=== PATIENT | female | born 1980 | race Hispanic/Latino ===

== ENCOUNTER 2016-10-21 13:08 | Day surgery (SDC) | payer BC ==
[2016-10-21] MEDS ORDERED: REGLAN IV ONE (13:25)
[2016-10-21 14:10] VITALS: BP 127/68
[2016-10-21] MEDS ORDERED: DepaCON 500 MG in NACL 0.9% 100 ML IV ONE (14:26)
== END 2016-10-21 13:09 | disposition home or self-care (01) ==
LOC: OPU 13:08
PROVIDERS: ATTEND Specialist
DX: G43.909 Migraine, unspecified, not intractable, without status migrainosus (principal)
CPT/HCPCS: 96365; 96375; J2765; 96374

== ENCOUNTER 2016-10-26 21:09 | Emergency (ER) | payer BC ==
[2016-10-26] MEDS ORDERED: MORPHINE IV ONE (22:35)
[2016-10-26] MEDS ORDERED: ZOFRAN IV ONE (22:35)
[2016-10-26] MEDS ORDERED: NACL 0.9% 1000 ML 1,000 ML IV ONE (22:35)
--- NOTE | 2016-10-26 22:41 | Emergency Department Report ---
HPI - General Chief Complaint: Headache Time Seen by Provider: 10/26/16 22:17 - HPI HPI: This is a 36-year-old female who presents to the emergency department from home with complaint of a three-week migraine headache that is affecting her on the top right portion of her head. She doesn't history of migraines but says usually does not last this long. It has not been continuous, necessarily, but has been there more than it has not. Patient used to be on Topamax but was switched to Depakote, Toradol and Fioricet. She has been taking his medications without much relief. She was here Thursday, 5 days ago, in the outpatient procedure area and had a Depakote drip which helped for about [address] Palmer for neurology. She does not have a primary care doctor. She has this past medical history of migraine as well as a generalized anxiety disorder. The headache is associated with some photophobia and occasional nausea but she denies any vomiting, slurred speech or any neurological deficits. ED Past Medical Hx - Past Medical History Hx Arthritis: Yes - Surgical History Past Surgical History?: Yes Additional Surgical History: tubal ligation. - Social History Smoking Status: Current Every Day Smoker Substance Use Type: None - Medications Home Medications: Home Medications Medication Instructions Recorded Confirmed Last Taken Type ALPRAZolam [Alprazolam] 0.5 mg PO BID PRN 10/21/16 10/27/16 10/26/16 History Butalb/Acetaminophen/Caffeine 1 tab PO DAILY 10/21/16 10/27/16 10/26/16 History [Hqcpiw-Csrganyp-Nqvp 50-325-40] Duloxetine HCl [DULoxetine] 60 mg PO DAILY 10/21/16 10/27/16 10/26/16 History Ketorolac [Toradol] 10 mg PO DAILY PRN 10/21/16 10/27/16 10/26/[address] [DepaKOTE DR] 500 mg PO DAILY 10/27/16 10/27/16 10/26/16 History ED Review of Systems ROS: Stated complaint: MIGRAINE X 24 DAYS Other details as noted in HPI Comment: All other systems reviewed and negative Constitutional: denies: chills, fever Eyes: denies: eye pain, eye discharge, vision change ENT: denies: ear pain, throat pain Respiratory: denies: cough, shortness of breath, wheezing Cardiovascular: denies: chest pain, palpitations Gastrointestinal: nausea. denies: abdominal pain, vomiting Genitourinary: denies: urgency, dysuria, discharge Musculoskeletal: denies: back pain, joint swelling, arthralgia Skin: denies: rash, lesions Neurological: headache. denies: weakness, numbness Physical Exam - Physical Exam Vital Signs: Vital Signs 10/26/16 21:22 Temperature 98.7 F Pulse Rate 104 H Blood Pressure 148/91 O2 Sat by Pulse 98 Oximetry ED Course Vital Signs 10/26/16 21:22 Temperature 98.7 F Pulse Rate 104 H Blood Pressure 148/91 O2 Sat by Pulse 98 Oximetry - Consultations Consultation #1: I spoke with the patient's neurologist, Dr. Palmer, who recommended giving the patient 10 mg of Reglan and 500 mg of Depacon. He says that he is fine with her following up with him in the next 1-2 days and that he might have to increase her doses of Depakote. He does not recommend any further imaging and does not recommend any lumbar puncture and says he is very common and that this is a migraine headache for this patient. 10/27/16 01:21 ED Medical Decision Making - Lab Data Result diagrams: 10/26/16 22:42 10/26/16 22:42 - Medical Decision Making 36-year-old female with a history of migraines presents with right-sided migraine for the past 3 weeks. Her labs have been unremarkable. I spoke with her neurologist who recommended Reglan and Depacon. She received these medications and upon reevaluation she is still having discomfort but she is improved down to about a 4 out of 10. She says that it is a good an improvement where she feels she can go home and get some sleep and will follow- up with Dr. Palmer later today. She will return to the ER with any worsening of her symptoms or any acute distress. - Differential Diagnosis migraine, tension headache, cluster headache Critical Care Time: No Critical care attestation.: If time is entered above; I have spent that time in minutes in the direct care of this critically ill patient, excluding procedure time. ED Disposition Clinical Impression: Migraine headache Qualifiers: Migraine type: unspecified Status migrainosus presence: without status migrainosus Disposition: DISCHARGED TO HOME OR SELFCARE Is pt being admited?: No Condition: Stable Instructions: Migraine Headache (ED) Additional Instructions: Please follow-up with Dr. Ashley later today if possible or as soon as possible. Return to the emergency department with any worsening of your symptoms or any acute distress. Referrals: CAIT PALMER MD [Staff Physician] - [facility] Time of Disposition: 01:24
[2016-10-26 23:03] LABS: Basophils % (Auto) 0.9 % (0.0-1.8); Eosinophils % (Auto) 1.2 % (0.0-4.3); Hematocrit 44.8 % (30.3-42.9); Hemoglobin 15.3 gm/dl (10.1-14.3); Mean Corpuscular HGB Conc 34 % (30-34); Mean Corpuscular Hemoglobin 30 pg (28-32); Mean Corpuscular Volume 88 fl (79-97); Platelet Count 247 K/mm3 (140-440); Red Blood Count 5.09 M/mm3 (3.65-5.03); Red Cell Distribution Width 13.9 % (13.2-15.2); White Blood Count 8.7 K/mm3 (4.5-11.0)
[2016-10-26] MEDS ORDERED: REGLAN IV ONE (23:12)
[2016-10-26 23:21] LABS: Albumin 3.9 g/dL (3.9-5); Albumin/Globulin Ratio 1.6 %; Alkaline Phosphatase 103 units/L (35-129); Anion Gap 15 mmol/L; BUN/Creatinine Ratio 13.33; Blood Urea Nitrogen 8 mg/dL (7-17); Calcium 8.9 mg/dL (8.4-10.2); Carbon Dioxide 27 mmol/L (22-30); Chloride 99.3 mmol/L (98-107); Glucose 94 mg/dL (65-100); Potassium 4.2 mmol/L (3.6-5.0); Sodium 137 mmol/L (137-145); Total Protein 6.3 g/dL (6.3-8.2)
[2016-10-26 23:22] LABS: Alanine Aminotransferase < 5 units/L (7-56)
[2016-10-26] MEDS ORDERED: DepaCON 500 MG in NACL 0.9% 100 ML IV ONE (23:30)
[2016-10-27 02:06] VITALS: BP 106/70
== END 2016-10-27 02:07 | disposition home or self-care (01) ==
LOC: ED 21:09
DX: G43.909 Migraine, unspecified, not intractable, without status migrainosus (principal); M19.90 Unspecified osteoarthritis, unspecified site; F17.200 Nicotine dependence, unspecified, uncomplicated
CPT/HCPCS: 36415; 80053; 80164; 84443; 84703; 85025; 93005; 93010; 96361; 96365; 96375; 99283; J2270; J2405; J2765; J7030

== ENCOUNTER 2016-10-30 21:51 | Emergency (ER) | payer BC ==
[2016-10-30 23:29] VITALS: BP 149/94
== END 2016-10-31 02:50 | disposition left against medical advice (07) ==
LOC: ED 21:51
DX: R42 Dizziness and giddiness (principal); R20.0 Anesthesia of skin; M19.90 Unspecified osteoarthritis, unspecified site; G43.909 Migraine, unspecified, not intractable, without status migrainosus; F17.200 Nicotine dependence, unspecified, uncomplicated; Z88.0 Allergy status to penicillin; Z88.6 Allergy status to analgesic agent; Z88.1 Allergy status to other antibiotic agents; Z53.21 Procedure and treatment not carried out due to patient leaving prior to being seen by health care provider

== ENCOUNTER 2017-01-25 21:21 | Emergency (ER) | payer BC ==
[2017-01-25] MEDS ORDERED: BENADRYL IV ONE (22:55)
[2017-01-25] MEDS ORDERED: DECADRON IV ONE (22:55)
[2017-01-25] MEDS ORDERED: REGLAN IV ONE (22:55)
[2017-01-25] MEDS ORDERED: NACL 0.9% 1000 ML 1,000 ML IV ONE (22:55)
--- NOTE | 2017-01-25 22:58 | Emergency Department Report ---
ED Headache HPI - General Chief Complaint: Headache Stated Complaint: HEADACHE Time Seen by Provider: 01/25/17 22:55 Source: patient, family Exam Limitations: no limitations - History of Present Illness Timing/Duration: other (months) Quality: severe Head Injury Location: occipital Recent Head Trauma: no recent headache/trauma, frequent headaches, chronic headaches Associated Symptoms: other (no change this is chronic ). denies: confusion, fatigue, facial pain, fever/chills, flushing, loss of consciousness, nausea/ vomiting, nasal congestion, nasal drainage, numbness in legs/feet, rash, seizures, sinus infection, stiff neck, vision changes, weakness Allergies/Adverse Reactions: Allergies ibuprofen Adverse Reaction (Verified 10/21/16 13:24) Unknown levofloxacin [From Levaquin] Adverse Reaction (Verified 10/21/16 13:24) Rash Penicillins Adverse Reaction (Verified 10/21/16 13:24) Itching,RASH. RENNY Home Medications: Ambulatory Orders ALPRAZolam [Alprazolam] 0.5 mg PO BID PRN 10/21/16 Butalb/Acetaminophen/Caffeine [Ebgstb-Tkvpstwg-Nnul 50-325-40] 1 tab PO DAILY Duloxetine HCl [DULoxetine] 60 mg PO DAILY 10/21/16 Ketorolac [Toradol] 10 mg PO DAILY PRN 10/21/[address] [DepEli JEFFRIES] 500 mg PO DAILY 10/27/16 ED Review of Systems ROS: Stated complaint: HEADACHE Other details as noted in HPI Comment: All other systems reviewed and negative Constitutional: no symptoms reported, see HPI. denies: chills Eyes: as per HPI. denies: eye pain ENT: as per HPI. denies: ear pain, throat pain Respiratory: no symptoms reported, see HPI. denies: cough, orthopnea Cardiovascular: as per HPI. denies: chest pain, palpitations, dyspnea on exertion, orthopnea Endocrine: no symptoms reported, see HPI. denies: excessive sweating, flushing , intolerance to cold, intolerance to heat Gastrointestinal: as per HPI. denies: abdominal pain, nausea, vomiting Genitourinary: as per HPI. denies: urgency, dysuria Musculoskeletal: as per HPI. denies: back pain Skin: as per HPI. denies: rash, lesions Neurological: as per HPI, headache. denies: weakness, numbness, paresthesias, confusion, abnormal gait, vertigo Psychiatric: as per HPI. denies: anxiety, depression Hematological/Lymphatic: as per HPI. denies: easy bleeding ED Past Medical Hx - Past Medical History Hx Arthritis: Yes Hx Headaches / Migraines: Yes Additional medical history: IBS/// - Surgical History Additional Surgical History: tubal ligation. - Social History Smoking Status: Never Smoker Substance Use Type: None - Medications Home Medications: Home Medications Medication Instructions Recorded Confirmed Last Taken Type ALPRAZolam [Alprazolam] 0.5 mg PO BID PRN 10/21/16 01/25/17 01/25/17 History Butalb/Acetaminophen/Caffeine 1 tab PO DAILY 10/21/16 01/25/17 01/25/17 History [Oycydu-Sjympchd-Klgp 50-325-40] Duloxetine HCl [DULoxetine] 60 mg PO DAILY 10/21/16 01/25/17 01/25/17 History Ketorolac [Toradol] 10 mg PO DAILY PRN 10/21/16 01/25/17 01/25/[address] [DepaKOTE ] 500 mg PO DAILY 10/27/16 01/25/17 01/25/17 History ED Physical Exam - General Limitations: No Limitations General appearance: alert - Head Head exam: Present: atraumatic - Eye Eye exam: Present: PERRL - ENT ENT exam: Present: normal exam, mucous membranes moist - Neck Neck exam: Present: normal inspection, full ROM. Absent: tenderness, meningismus, lymphadenopathy, thyromegaly - Respiratory Respiratory exam: Present: normal lung sounds bilaterally - Cardiovascular Cardiovascular Exam: Present: regular rate - GI/Abdominal GI/Abdominal exam: Present: soft - Rectal Rectal exam: Present: deferred - Extremities Exam Extremities exam: Present: normal inspection, full ROM, normal capillary refill. Absent: tenderness, pedal edema, joint swelling, calf tenderness - Back Exam Back exam: Present: normal inspection, full ROM. Absent: tenderness, CVA tenderness (R), CVA tenderness (L) - Neurological Exam Neurological exam: Present: alert, altered, oriented X3, CN II-XII intact, normal gait, reflexes normal. Absent: abnormal gait - Psychiatric Psychiatric exam: Present: normal affect, normal mood. Absent: depressed, agitated - Skin Skin exam: Present: warm, dry, intact, normal color. 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 ED Disposition Clinical Impression: Migraine, Chronic pain Disposition: DC-01 TO HOME OR SELFCARE Is pt being admited?: No Does the pt Need Aspirin: No Condition: Stable Instructions: Migraine Headache (ED) Additional Instructions: hydrate well take you meds as instructed follow up Dr Jarquin in AM for further direction Referrals: DONAVON LANGE MD [Referring] - 3-5 Days
[2017-01-25] MEDS ORDERED: DECADRON ONE (23:50)
[2017-01-26 00:53] VITALS: BP 110/75
== END 2017-01-26 01:19 | disposition home or self-care (01) ==
LOC: ED 21:21
DX: G43.909 Migraine, unspecified, not intractable, without status migrainosus (principal); M19.90 Unspecified osteoarthritis, unspecified site; Z88.6 Allergy status to analgesic agent; Z88.0 Allergy status to penicillin; Z88.1 Allergy status to other antibiotic agents
CPT/HCPCS: 96361; 96374; 96375; 99282; J1100; J1200; J2765; J7030

== ENCOUNTER 2017-02-10 21:14 | Emergency (ER) | payer BC ==
[2017-02-10 22:59] LABS: Basophils % (Auto) 0.9 % (0.0-1.8); Eosinophils % (Auto) 1.9 % (0.0-4.3); Hematocrit 43.3 % (30.3-42.9); Hemoglobin 14.7 gm/dl (10.1-14.3); Mean Corpuscular HGB Conc 34 % (30-34); Mean Corpuscular Hemoglobin 31 pg (28-32); Mean Corpuscular Volume 92 fl (79-97); Platelet Count 223 K/mm3 (140-440); Red Blood Count 4.69 M/mm3 (3.65-5.03); Red Cell Distribution Width 13.1 % (13.2-15.2); White Blood Count 8.5 K/mm3 (4.5-11.0)
[2017-02-10 23:14] LABS: INR 0.94 (0.87-1.13); Partial Thromboplastin Time 29.2 Sec. (24.2-36.6)
[2017-02-10 23:19] LABS: Anion Gap 17 mmol/L; BUN/Creatinine Ratio 16.66; Blood Urea Nitrogen 10 mg/dL (7-17); Calcium 8.9 mg/dL (8.4-10.2); Carbon Dioxide 23 mmol/L (22-30); Chloride 99.9 mmol/L (98-107); Glucose 99 mg/dL (65-100); Potassium 4.3 mmol/L (3.6-5.0); Sodium 136 mmol/L (137-145)
--- NOTE | 2017-02-10 23:55 | Cat Scan Report ---
FINAL REPORT PROCEDURE: CT head without contrast. TECHNIQUE: Computerized tomography of the head was performed without contrast material. HISTORY: Worse headache ever. COMPARISON: No prior studies are available for comparison. FINDINGS: The ventricles are normal in size. The osman matter and white matter appear normal. There are no mass lesions. There is no intracranial hemorrhage. The calvarium appears intact. The mastoid air cells and visualized paranasal sinuses are well aerated. IMPRESSION: Normal study.
--- NOTE | 2017-02-11 08:05 | Emergency Department Report ---
ED Headache HPI - General Chief Complaint: Headache Stated Complaint: MIGRAINE/L SIDE WEAKNESS Time Seen by Provider: 02/11/17 07:46 - History of Present Illness Initial Comments: Patient states "my typical migraine is on the right but it was on the left last night. She states he had some paresthesias on the left side. She denied actual weakness of her left side nor any facial weakness or numbness. She states that she does have tingling with migraine at times. She sees a neurologist Dr. Mcgowan. He prescribes her Toradol for her headaches. She states she is on valproic acid and amitriptyline as a prophylactic measure. She does not take Imitrex or this type migraine class medication. She states that she can take pills for her headache right now and that it is only mild-to- moderate. She states that she had mild no vomiting. Timing/Duration: 4-6 hours Quality: moderate Head Injury Location: parietal Recent Head Trauma: chronic headaches Associated Symptoms: denies symptoms (except for mild nausea and paresthesias as above indicated) Allergies/Adverse Reactions: Allergies ibuprofen Adverse Reaction (Verified 10/21/16 13:24) Unknown levofloxacin [From Levaquin] Adverse Reaction (Verified 10/21/16 13:24) Rash Penicillins Adverse Reaction (Verified 10/21/16 13:24) Itching,RASH. RENNY Home Medications: Ambulatory Orders ALPRAZolam [Alprazolam] 0.5 mg PO BID PRN 10/21/16 Butalb/Acetaminophen/Caffeine [Dtwnpm-Iuowrgbt-Ygnk 50-325-40] 1 tab PO DAILY Duloxetine HCl [DULoxetine] 60 mg PO DAILY 10/21/16 Ketorolac [Toradol] 10 mg PO DAILY PRN 10/21/16 Divalproex [DepaKOTE DR] 500 mg PO DAILY 10/27/16 Butalb/Acetamin/Caff 50-325-40 [Fioricet] 1 each PO Q4H PRN #14 tablet 02/11/17 ED Review of Systems ROS: Stated complaint: MIGRAINE/L SIDE WEAKNESS Other details as noted in HPI Constitutional: denies: chills, fever Eyes: denies: eye pain, eye discharge, vision change ENT: denies: ear pain, throat pain Respiratory: denies: cough, shortness of breath, wheezing Cardiovascular: denies: chest pain, palpitations Endocrine: no symptoms reported Gastrointestinal: denies: abdominal pain, nausea, diarrhea Genitourinary: denies: urgency, dysuria, discharge Musculoskeletal: denies: back pain, joint swelling, arthralgia Skin: denies: rash, lesions Neurological: as per HPI, headache, paresthesias. denies: weakness, numbness, confusion, abnormal gait, vertigo (patient states she noted some "discoloration " of her left hand) Psychiatric: denies: anxiety, depression Hematological/Lymphatic: denies: easy bleeding, easy bruising ED Past Medical Hx - Past Medical History Previous Medical History?: Yes Hx Arthritis: Yes Hx Headaches / Migraines: Yes Additional medical history: IBS/// - Surgical History Past Surgical History?: Yes Additional Surgical History: tubal ligation. - Social History Smoking Status: Current Every Day Smoker Substance Use Type: None - Medications Home Medications: Home Medications Medication Instructions Recorded Confirmed Last Taken Type ALPRAZolam [Alprazolam] 0.5 mg PO BID PRN 10/21/16 01/25/17 01/25/17 History Butalb/Acetaminophen/Caffeine 1 tab PO DAILY 10/21/16 01/25/17 01/25/17 History [Jgrhoy-Xxljcabi-Xkkv 50-325-40] Duloxetine HCl [DULoxetine] 60 mg PO DAILY 10/21/16 01/25/17 01/25/17 History Ketorolac [Toradol] 10 mg PO DAILY PRN 10/21/16 01/25/17 01/25/[address] [DepaKOTE DR] 500 mg PO DAILY 10/27/16 01/25/17 01/25/17 History Butalb/Acetamin/Caff 50-325-40 1 each PO Q4H PRN #14 tablet 02/11/17 Unknown Rx [Fioricet] ED Physical Exam - General Limitations: No Limitations General appearance: alert, in no apparent distress - Head Head exam: Present: atraumatic, normocephalic - Eye Eye exam: Present: normal appearance, PERRL, EOMI. Absent: scleral icterus - ENT ENT exam: Present: mucous membranes moist - Neck Neck exam: Present: normal inspection. Absent: tenderness, meningismus - Respiratory Respiratory exam: Present: normal lung sounds bilaterally. Absent: respiratory distress - Cardiovascular Cardiovascular Exam: Present: regular rate, normal rhythm. Absent: systolic murmur, diastolic murmur, rubs, gallop - GI/Abdominal GI/Abdominal exam: Present: soft, normal bowel sounds. Absent: distended, tenderness, guarding, rebound, rigid - Extremities Exam Extremities exam: Present: normal inspection, full ROM, normal capillary refill , other (the patient has a strong radial and ulnar as well as brachial pulse on both sides they're symmetrical. I do not see any discoloration of her hand. Skin exam is normal temperature is normal). Absent: tenderness, pedal edema, joint swelling, calf tenderness - Back Exam Back exam: Present: normal inspection - Neurological Exam Neurological exam: Present: alert, oriented X3, CN II-XII intact, normal gait, reflexes normal (plantars are downgoing), other (cerebellar testing was normal) . Absent: motor sensory deficit - Psychiatric Psychiatric exam: Present: normal affect, normal mood - Skin Skin exam: Present: warm, dry, intact, normal color. Absent: rash ED Course Vital Signs 02/10/17 02/11/17 02/11/17 22:15 04:10 07:51 Temperature 98.6 F 98.8 F 97.8 F Pulse Rate 113 H 85 70 Respiratory 18 18 14 Rate Blood Pressure 118/70 134/83 Blood Pressure 114/66 [Left] O2 Sat by Pulse 95 100 98 Oximetry - Reevaluation(s) Reevaluation #1: Patient states she can take oral analgesia now. This will be given. She will be discharged to follow-up with her neurologist. She had no sensory findings on neurological examination nor any drift or weakness. 02/11/17 08:40 ED Medical Decision Making - Lab Data Result diagrams: 02/10/17 22:41 02/10/17 22:41 Laboratory Results - last 24 hr 02/10/17 02/10/17 02/10/17 22:41 22:41 22:41 WBC 8.5 RBC 4.69 Hgb 14.7 H Hct 43.3 H MCV 92 MCH 31 MCHC 34 RDW 13.1 L Plt Count 223 Lymph % (Auto) 33.1 Mcclain % (Auto) 6.2 Eos % (Auto) 1.9 Baso % (Auto) 0.9 Lymph # 2.8 Mcclain # 0.5 Eos # 0.2 Baso # 0.1 Seg Neutrophils % 57.9 Seg Neutrophils # 4.9 PT 13.0 INR 0.94 APTT 29.2 Thrombin Time Sodium 136 L Potassium 4.3 Chloride 99.9 Carbon Dioxide 23 Anion Gap 17 BUN 10 Creatinine 0.6 L Estimated GFR > 60 BUN/Creatinine Ratio 16.66 Glucose 99 Calcium 8.9 Troponin T < 0.010 02/10/17 22:41 WBC RBC Hgb Hct MCV MCH MCHC RDW Plt Count Lymph % (Auto) Mcclain % (Auto) Eos % (Auto) Baso % (Auto) Lymph # Mcclain # Eos # Baso # Seg Neutrophils % Seg Neutrophils # PT INR APTT Thrombin Time 16.2 Sodium Potassium Chloride Carbon Dioxide Anion Gap BUN Creatinine Estimated GFR BUN/Creatinine Ratio Glucose Calcium Troponin T - Radiology Data Radiology results: report reviewed interpreted by me: CT of the head was normal per radiologist. - Medical Decision Making I do not think this is a complex migraine because left-sided headaches would not be associated with left sided hemisensory or motor symptoms. Critical care attestation.: If time is entered above; I have spent that time in minutes in the direct care of this critically ill patient, excluding procedure time. ED Disposition Clinical Impression: Paresthesia Cephalalgia Qualifiers: Headache type: unspecified Headache chronicity pattern: acute headache Intractability: not intractable Qualified Code(s): R51 - Headache Disposition: DC-01 TO HOME OR SELFCARE Is pt being admited?: No Does the pt Need Aspirin: No Condition: Stable Instructions: Acute Headache (ED), Paresthesia (ED) Additional Instructions: Follow-up with your neurologist. Return any acute change or worsening symptoms. Prescriptions: Butalb/Acetamin/Caff 50-325-40 [Fioricet] 1 each PO Q4H PRN #14 tablet PRN Reason: Headache Referrals: PRIMARY CARE, [Primary Care Provider] - 3-5 Days CAIT MCGOWAN MD [Staff Physician] - 2-3 Days Time of Disposition: 08:42
[2017-02-11] MEDS ORDERED: NORCO 5/325 PO ONE (08:43)
[2017-02-11] MEDS ORDERED: ZOFRAN ODT PO ONE (08:44)
[2017-02-11] MEDS ORDERED: FIORICET PO ONE (08:44)
[2017-02-11 09:23] VITALS: BP 124/73
== END 2017-02-11 09:26 | disposition home or self-care (01) ==
LOC: ED 21:14
DX: G43.909 Migraine, unspecified, not intractable, without status migrainosus (principal); R20.9 Unspecified disturbances of skin sensation; F17.200 Nicotine dependence, unspecified, uncomplicated; M19.90 Unspecified osteoarthritis, unspecified site; Z88.1 Allergy status to other antibiotic agents; Z88.0 Allergy status to penicillin; Z88.6 Allergy status to analgesic agent
CPT/HCPCS: 36415; 70450; 80048; 84484; 85025; 85610; 85670; 85730; 93005; 93010; Q0162

== ENCOUNTER 2020-04-16 15:38 | Emergency (ER) | payer BC ==
--- NOTE | 2020-04-16 15:46 | Emergency Department Report ---
Blank Doc - Documentation Documentation: This is a 39-year-old female that presents with SI. Stated wants to take all pills to self harm self. This initial assessment/diagnostic orders/clinical plan/treatment(s) is/are subject to change based on patient's health status, clinical progression and re- assessment by fellow clinical providers in the ED. Further treatment and workup at subsequent clinical providers discretion. Patient/guardians urged not to elope from the ED as their condition may be serious if not clinically assessed and managed. Initial orders include: 1- Patient sent to MAIN ED for further evaluation and treatment 2- quality control specialist was notified to have patient be brought back [facility]. 3- RN was notified to keep patient as close range and observation until room available 4- Patient presents with substantial risk of imminent harm to self, appears to be so unable to care for his/her own physical health and safety as to create an imminently life-endangering crisis, and has committed/expressed life endangering crisis to self. Due to this and other complaints, patient is put on psych hold.
[2020-04-16 16:10] VITALS: BP 134/79
[2020-04-16 16:55] LABS: Hematocrit 45.8 % (30.3-42.9); Hemoglobin 15.1 gm/dl (10.1-14.3); Mean Corpuscular HGB Conc 33 % (30-34); Mean Corpuscular Volume 84 fl (79-97); Platelet Count 324 K/mm3 (140-440); Red Blood Count 5.43 M/mm3 (3.65-5.03); Red Cell Distribution Width 15.4 % (13.2-15.2)
[2020-04-16 17:02] LABS: Bilirubin,Urine NEG (Negative); Blood,Urine NEG (Negative); Color,Urine Straw (Yellow); Mucus,Urine FEW /HPF; Protein,Urine <15 mg/dL mg/dL (Negative); Urobilinogen,Urine < 2.0 mg/dL (<2.0)
[2020-04-16 17:05] LABS: BUN/Creatinine Ratio 10; Blood Urea Nitrogen 8 mg/dL (7-17); Calcium 9.8 mg/dL (8.4-10.2); Hemolysis Index 19
[2020-04-16 17:15] LABS: Amphetamine Screen,Urine PRESUMPTIVE NEGATIVE; Benzodiazepines Screen,Urine PRESUMPTIVE POSITIVE; Cannabinoid Screen,Urine PRESUMPTIVE NEGATIVE; Cocaine Screen,Urine PRESUMPTIVE NEGATIVE; Methadone Screen,Urine PRESUMPTIVE NEGATIVE; Opiate Screen,Urine PRESUMPTIVE NEGATIVE
[2020-04-16 19:34] LABS: Band Neutrophils # (Manual) 0.1 K/mm3; Platelet Estimate Consistent w Auto; RBC Morphology Normal; Total Cells Counted 100
--- NOTE | 2020-04-16 22:41 | Emergency Department Report ---
ED Psych HPI - General Chief Complaint: Psych Stated Complaint: 1013 Time Seen by Provider: 04/16/20 15:45 Source: patient Mode of arrival: Ambulatory - History of Present Illness Initial Comments: 39-year-old female, history of anxiety, depression, DVT, chronic migraines, polycythemia vera, presents to ED with suicidal ideation. Patient states she was thinking about overdosing on her 's Coumadin pills (patient takes Xarelto for her DVT). Patient denies actually taking any of his Coumadin. Patient states she reported this to her therapist and she was sent to the ED for evaluation. Patient states she feels like a burden to her family because she is unable to work or bring in any money. She denies any HI or hallucinations. Patient reports she is compliant with her depression medication. MD Complaint: suicidal ideation -: This afternoon Associated Psychiatric Symptoms: depression, suicidal ideation Quality: constant Improves With: none Worsens With: none Context: significant life stressor Associated Symptoms: denies other symptoms If Self Harm: has plan (Overdose on 's Coumadin pills) - Related Data Home Medications Medication Instructions Recorded Confirmed Last Taken ALPRAZolam [Alprazolam] 0.5 mg PO BID PRN 10/21/16 01/25/17 01/25/17 Butalb/Acetaminophen/Caffeine 1 tab PO DAILY 10/21/16 01/25/17 01/25/17 [Rwzjch-Vofntxkj-Sjme 50-325-40] Duloxetine HCl [DULoxetine] 60 mg PO DAILY 10/21/16 01/25/17 01/25/17 Ketorolac [Toradol] 10 mg PO DAILY PRN 10/21/16 01/25/17 01/25/17 Divalproex [Gonzalo JEFFRIES] 500 mg PO DAILY 10/27/16 01/25/17 01/25/17 Previous Rx's Medication Instructions Recorded Last Taken Type Butalb/Acetamin/Caff 50-325-40 1 each PO Q4H PRN #14 tablet 02/11/17 Unknown Rx [Fioricet] Ondansetron [Zofran Odt] 4 mg PO Q6H PRN #7 tab.rapdis 02/11/17 Unknown Rx Allergies Allergy/AdvReac Type Severity Reaction Status Date / Time ibuprofen AdvReac Unknown Verified 10/21/16 13:24 levofloxacin [From Levaquin] AdvReac Rash Verified 10/21/16 13:24 Penicillins AdvReac Itching,RASH. Verified 10/21/16 13:24 RENNY ED Review of Systems ROS: Stated complaint: 1013 Other details as noted in HPI Comment: All other systems reviewed and negative Psychiatric: depression, suicidal thoughts. denies: auditory hallucinations, visual hallucinations, homicidal thoughts ED Past Medical Hx - Past Medical History Hx Arthritis: Yes Hx Headaches / Migraines: Yes Additional medical history: IBS/// - Surgical History Additional Surgical History: tubal ligation. - Social History Smoking Status: Current Every Day Smoker Substance Use Type: None - Medications Home Medications: Home Medications Medication Instructions Recorded Confirmed Last Taken Type ALPRAZolam [Alprazolam] 0.5 mg PO BID PRN 10/21/16 01/25/17 01/25/17 History Butalb/Acetaminophen/Caffeine 1 tab PO DAILY 10/21/16 01/25/17 01/25/17 History [Ggwsev-Jytgdcmi-Vgxc 50-325-40] Duloxetine HCl [DULoxetine] 60 mg PO DAILY 10/21/16 01/25/17 01/25/17 History Ketorolac [Toradol] 10 mg PO DAILY PRN 10/21/16 01/25/17 01/25/[address] [DepEli JEFFRIES] 500 mg PO DAILY 10/27/16 01/25/17 01/25/17 History Butalb/Acetamin/Caff 50-325-40 1 each PO Q4H PRN #14 tablet 02/11/17 Unknown Rx [Fioricet] Ondansetron [Zofran Odt] 4 mg PO Q6H PRN #7 tab.rapdis 02/11/17 Unknown Rx ED Physical Exam - General Limitations: No Limitations General appearance: alert, in no apparent distress - Head Head exam: Present: atraumatic, normocephalic - Eye Eye exam: Present: normal appearance, EOMI - ENT ENT exam: Present: mucous membranes moist - Neck Neck exam: Present: normal inspection - Respiratory Respiratory exam: Present: normal lung sounds bilaterally. Absent: respiratory distress - Cardiovascular Cardiovascular Exam: Present: regular rate, normal rhythm - GI/Abdominal GI/Abdominal exam: Absent: distended - Extremities Exam Extremities exam: Present: normal inspection - Neurological Exam Neurological exam: Present: alert, oriented X3 - Psychiatric Psychiatric exam: Present: depressed, suicidal ideation - Skin Skin exam: Present: warm, dry, intact, normal color ED Course Vital Signs 04/16/20 04/16/20 16:02 22:40 Temperature 97.9 F Pulse Rate 91 H Respiratory 19 16 Rate Blood Pressure 134/79 O2 Sat by Pulse 99 Oximetry ED Medical Decision Making - Lab Data Result diagrams: 04/16/20 16:22 04/16/20 16:22 - Medical Decision Making 39-year-old female with suicidal ideations. Labs are unremarkable. Patient placed on 1013. She is medically clear for mental health evaluation. Critical care attestation.: If time is entered above; I have spent that time in minutes in the direct care of this critically ill patient, excluding procedure time. ED Disposition Clinical Impression: Suicidal ideation, Depression Disposition: DC/TX-70 ANOTHER TYPE HLTHCARE Is pt being admited?: No Condition: Stable Referrals: DOROTEO NORRIS [Primary Care Provider] - 3-5 Days
[2020-04-17] MEDS ORDERED: ALPRAZolam 1 MG TAB ONE (01:05)
[2020-04-17] MEDS ORDERED: PREGABALIN 25 MG CAP ONE (01:05)
[2020-04-17] MEDS ORDERED: RIVAROXABAN 20 MG TAB PO SCH (22:00)
[2020-04-17] MEDS ORDERED: ALPRAZolam 1 MG TAB PO PRN (23:54)
[2020-04-18 09:18] LABS: INR 0.99 (0.87-1.13); Partial Thromboplastin Time 29.2 Sec. (24.2-36.6)
[2020-04-18] MEDS ORDERED: THYROID,PORK 60 MG TAB PO SCH (10:00)
[2020-04-18] MEDS ORDERED: DULoxetine 30 MG CAP PO SCH (22:00)
[2020-04-18] MEDS ORDERED: traZODone 100 MG TAB PO SCH (22:00)
[2020-04-18] MEDS ORDERED: PREGABALIN 75 MG CAP PO SCH (22:00)
== END 2020-04-17 20:00 | disposition other institution (70) ==
LOC: ED 15:38
DX: F32.89 Other specified depressive episodes (principal); M13.88 Other specified arthritis, other site; G43.909 Migraine, unspecified, not intractable, without status migrainosus; F17.200 Nicotine dependence, unspecified, uncomplicated; Z98.51 Tubal ligation status; Z79.899 Other long term (current) drug therapy; Z88.6 Allergy status to analgesic agent; Z88.1 Allergy status to other antibiotic agents; Z88.0 Allergy status to penicillin
CPT/HCPCS: 36415; 80048; 80307; 80320; 81001; 85007; 85025; 85610; 85730; G0480